=== PATIENT | female | born 1995 | race African-American/Black ===

== ENCOUNTER 2021-12-21 15:34 | Emergency (ER) | payer MEDICAID ==
[~2021-12-21] VITALS: Ht 170.2 cm; Wt 77.0 kg
[2021-12-21] MEDS ORDERED: SILVADENE1 % EX (16:14)
[2021-12-21] MEDS ORDERED: AMOXICILLIN500 MG PO (16:14)
[2021-12-21 16:21] VITALS: BP 146/85
== END 2021-12-21 16:26 | disposition home or self-care (01) ==
LOC: ED 15:34
DX: T22.212A Burn of second degree of left forearm, initial encounter (principal); K04.7 Periapical abscess without sinus; K02.9 Dental caries, unspecified; S02.5XXA Fracture of tooth (traumatic), initial encounter for closed fracture; X58.XXXA Exposure to other specified factors, initial encounter; X10.1XXA Contact with hot food, initial encounter; Y93.G3 Activity, cooking and baking; Y92.000 Kitchen of unspecified non-institutional (private) residence as the place of occurrence of the external cause